=== PATIENT | male | born 1975 ===

== ENCOUNTER 2017-08-31 13:11 | Emergency (ER) | payer OTHER ==
[~2017-08-31] VITALS: Ht 175.3 cm; Wt 63.4 kg
[2017-08-31 13:54] LABS: CULTURE INDICATED? NO; MICROSCOPIC NOT IND
[2017-08-31 14:03] LABS: BASOPHILS # (AUTO) 0.04 x10^3/uL (0-0.1); BASOPHILS % (AUTO) 1 % (0-1); EOSINOPHILS # (AUTO) 0.11 x10^3/uL (0-0.4); EOSINOPHILS % (AUTO) 1 % (1-7); LYMPHOCYTES # (AUTO) 2.14 x10^3/uL (1-3.4); LYMPHOCYTES % (AUTO) 25 % (22-44); MD NO; MEAN CORPUSCULAR HEMOGLOBIN 30.6 pg (27.5-34.5); MEAN CORPUSCULAR VOLUME 90.1 fL (81-97); MEAN PLATELET VOLUME 6.6 fL (7.4-10.4); MONOCYTES # (AUTO) 0.87 x10^3/uL (0.2-0.8); MONOCYTES % (AUTO) 10 % (2-9); NEUTROPHILS # (AUTO) 5.57 x10^3/uL (1.8-6.8); NEUTROPHILS % (AUTO) 64 % (42-75); PLATELET COUNT 329 x10^3/uL (130-400); RED BLOOD COUNT 5.25 x10^6/uL (4.38-5.82); RED CELL DISTRIBUTION WIDTH 14.5 % (9.4-14.8)
[2017-08-31] MEDS ORDERED: BICILLIN-LA 2,400,000 UNITS/4 ML IM ONE (16:00)
[2017-08-31] MEDS ORDERED: AZITHROMYCIN 500 MG TABLET ONE ×2 (16:42→16:45)
[2017-08-31] MEDS ORDERED: AZITHROMYCIN 500 MG TABLET PO ONE (17:00)
[2017-08-31 17:33] VITALS: BP 142/105
== END 2017-08-31 17:36 | disposition other institution (70) ==
LOC: ED 16:07
DX: A51.0 Primary genital syphilis (principal); I88.9 Nonspecific lymphadenitis, unspecified
CPT/HCPCS: 36415; 81003; 85025; 86592; 87806; 99284; G0475